=== PATIENT | male | born 1995 | race Two or more races ===

== ENCOUNTER 2023-05-12 23:42 | Emergency (ER) | payer OTHER ==
[~2023-05-12] VITALS: Ht 175.3 cm; Wt 113.4 kg
[2023-05-13 02:09] LABS: PH,URINE 5.5 (5.0-8.0); URINE APPEARANCE Clear; URINE BILIRRUBIN Negative (NEGATIVE); URINE BLOOD Negative; URINE COLOR Yellow; URINE GLUCOSE Negative (NEGATIVE); URINE LEUKOCYTE Negative; URINE NITRATE Negative; URINE PROTEIN Negative (NEGATIVE); URINE UROBILINOGEN 0.2 E.U./dl
[2023-05-13 02:13] LABS: URINE EPITHELIAL CELLS 3.5 uL (0.0-38.8)
[2023-05-13 02:15] LABS: URINE BACTERIA 3.7 uL (0.0-1933); URINE RBC 0.8 uL (0.0-20.8); URINE WBC 1.6 uL (0.0-23.2)
[2023-05-13 02:15] LABS: HEMATOCRIT 41.8 % (39.0-48.0); HEMOGLOBIN 14.4 g/dL (13-16.00); MEAN CELL VOLUME 82.9 fL (80.0-100.00); MEAN CORPUSCULAR HEMOGLOBIN 28.6 pg (27.00-32.0); MEAN CORPUSCULAR HGB CONC 34.5 g/dl (32.0-36.0); PLATELET COUNT 218 K/uL (150-450); RED BLOOD COUNT 5.05 M/uL (4.00-6.00); RED CELL DISTRIBUTION WIDTH 14.1 % (11.5-14.5)
[2023-05-13 02:17] LABS: ALBUMIN 3.6 gm/dL (3.4-5.0); BILIRUBIN TOTAL 0.47 mg/dL (0.3-1.2); CALCIUM 9.1 mg/dL (8.5-10.1); CREATININE SERUM 1.17 mg/dL (0.70-1.30); GFR 74.23; GLOBULINA 3.5 G/DL (2.4-3.5); POTASSIUM 3.91 mEq/L (3.5-5.1); TOTAL PROTEIN 7.1 gm/dL (6.4-8.2)
== END 2023-05-13 04:52 | disposition home or self-care (01) ==
LOC: ER 23:42
PROVIDERS: General Practice
DX: R00.2 Palpitations (principal); R53.81 Other malaise; Z88.6 Allergy status to analgesic agent